=== PATIENT | female | born 2000 | race Caucasian/White ===

== ENCOUNTER 2019-02-23 15:50 | Inpatient (IN) ==
[2019-02-23] MEDS ORDERED: ONDANSETRON INJ 2 MG/ML 2 ML VIAL IV STA (16:09)
[2019-02-23] MEDS ORDERED: SODIUM CHLORIDE 0.9% 1000ML 1,000 ML IV SCH (16:15)
[2019-02-23 16:28] LABS: Basophils # (auto) 0.02 K/uL (0-0.2); Basophils % (auto) 0.2 %; Eosinophils # (auto) 0.02 K/uL (0-0.5); Eosinophils % (auto) 0.2 %; Hemoglobin 15.6 g/dL (12.0-16.0); Immature Granulocytes # (auto) 0.03 K/uL (0.00-0.02); Immature Granulocytes % (auto) 0.4 %; Lymphocytes % (auto) 23.3 %; Mean Corpuscular Hgb Conc 36.3 g/dL (32-36); Mean Corpuscular Volume 90.9 fL (80-100); Mean Platelet Volume 9.8 fL (7.4-10.4); Monocytes # (auto) 0.96 K/uL (0.11-0.59); Monocytes % (auto) 11.8 %; Neutrophils # (auto) 5.21 K/uL (1.4-6.5); Neutrophils % (auto) 64.1 %; Platelet Count 263 K/uL (130-400); RDW Standard Deviation 46.7 fL (36.4-46.3); Red Blood Count 4.73 M/uL (4.2-5.4); White Blood Count 8.14 K/uL (4.8-10.8)
[2019-02-23] MEDS ORDERED: ACETYLCYSTEINE IV ONE (16:30)
[2019-02-23] MEDS ORDERED: DEXTROSE 5% IV ONE (16:30)
[2019-02-23 16:31] LABS: Appearance Urine Clear (Clear); Bacteria Urine Automated Negative (Negative); Bilirubin Urine Negative (Negative); Blood Urine Negative (Negative); Color Urine Yellow; Epithelial Cell Urine Auto >30 /lpf (0-5); Glucose Urine UA Negative (Negative); Ketones Urine Negative (Negative); Leukocyte Esterase Urine Trace (Negative); Nitrite Urine Negative (Negative); Protein Urine Negative (Negative); RBC Urine Automated 0-4 /hpf (0-4); Specific Gravity Urine 1.012 (1.000-1.030); Urobilinogen Urine Negative (Negative); pH Urine 7.5 (4.5-7.5)
[2019-02-23 16:40] LABS: Prothrombin Time 9.8 Seconds (9.0-12.0)
[2019-02-23 16:44] LABS: Pregnancy Test, Serum Negative (Negative)
[2019-02-23 16:45] LABS: Alanine Aminotransferase 18 U/L (12-78); Albumin Level 3.7 gm/dl (3.4-5.0); Aspartate Aminotransferase 20 U/L (15-37); BUN Creatinine Ratio 9.9 (10-20); Blood Urea Nitrogen 8 mg/dl (7-18); Calcium 9.4 mg/dl (8.5-10.1); Carbon Dioxide 24 mmol/L (21-32); Chloride 107 mmol/L (98-107); Creatinine Clr Calc Pharmacy 79.4 ml/min; Est GFR (Non-African American) 105.3; Glucose 102 mg/dl (70-99); Potassium 3.7 mmol/L (3.5-5.1); Sodium 140 mmol/L (136-145)
[2019-02-23 16:49] LABS: Albumin Globulin Ratio 0.9 (0.9-2); Alkaline Phosphatase 79 U/L (45-117); Bilirubin,Total 0.8 mg/dl (0.2-1); Creatine Kinase 88 U/L (26-192); Globulin 4.2 gm/dl (2.5-4.0); Total Protein 7.9 gm/dl (6.4-8.2); Troponin I < 0.015 ng/ml (0-0.045)
[2019-02-23 16:57] LABS: Amphetamines+Metham, Urine Neg (Neg); Barbiturates, Urine Neg (Neg); Benzodiazepine, Urine Neg (Neg); Cocaine, Urine Neg (Neg); MDMA (Ecstacy), Urine Neg (Neg); Methadone, Urine Neg (Neg); Opiate, Urine Neg (Neg); Phencyclidine, Urine Neg (Neg)
[2019-02-23 17:10] LABS: Acetaminophen 279 ug/ml (10-30); Salicylate < 1.7 mg/dl (2.8-20)
[2019-02-23] MEDS ORDERED: DEXTROSE 5% IV SCH (17:30)
[2019-02-23] MEDS ORDERED: ACETYLCYSTEINE IV SCH (17:30)
--- NOTE | 2019-02-23 17:32 | Emergency Department Note ---
Entered by Bharath Du acting as a scribe for History of Present Illness General Chief complaint: Mental Health Evaluation Stated complaint: overdose Time Seen by Provider: 02/23/19 15:52 Source: patient History of Present Illness Onset (ago): hour(s) 2 Severity: severe (40 tables of extra strength Tylenol) Quality: + other (Tylenol overdose suicidal attempt) Exacerbated By: + rest (culmination of stress, class, anxiety, and social life troubles) Associated symptoms: + denies other symptoms (abdominal pain, vomiting) and + other (lightheadedness) The patient is a 18 y/o female who presents to the ED after a suicide attempt that occurred 2 hours ago. Nursing staff states the patient took 40, extra strength Tylenol about 2 hours ago. They report it was a suicide attempt. Nursing staff notes there are 19/100 pills remaining in the bottle, and they did not know how many were in the bottle to start. Police states the patient has been depressed for about two weeks and complains of constant pain. They report they did not see other pills around the patient's home. Police note the patient sent a text to a friend stating she had 35 pills. The patient states "I was hoping I would go to sleep and not wake up". She reports she has had a culmination of stress, class, anxiety, and social life troubles. 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 She states she was at a friend's house today, went to class, and came home. The patient reports she then decided to take 2, extra strength Tylenol, and she notes she continued to take them one after another for about 30-40 minutes. She notes she took her last pill about 1-2 hours ago and believes she took around 40 pills. The patient states she also took six, 10mg tablets of melatonin. She reports she has started to feel lightheaded, but she denies vomiting. The patient notes she texted her friend and told her that she thinks she needs to go to the hospital. She states she takes control, uses alcohol 3-4 times a week, and used marijuana almost daily. The patient reports she does not know if she wants her parents informed, and she still feels suicidal. She denies a history of suicidal attempts, calling anyone other than her friend, tobacco use, and abdominal pain. Home Medications Home Medications Medication Instructions Recorded Confirmed Type norethindrone-e.estradiol-iron 1 tab PO DAILY 02/23/19 02/23/19 History [ ()] Allergies Allergy/AdvReac Type Severity Reaction Status Date / Time No Known Allergies Allergy Unverified 02/23/19 16:37 Past Med/Surg History Medical History No pertinent past medical history Surgical History No pertinent past surgical history Family History Other No pertinent family history Social History Preferred Language: Liberian Communication Ability: [employer] Manager Required: No Beliefs That Will Affect Care: None Current Living Situation: Other Current Living Situation Comment: apartment with roommates Feels Safe at Home: Yes Smoking Status: Former smoker Hx Alcohol Use: Yes Hx Substance Use: No Review of Systems See HPI for pertinent positives & negatives. and A total of 10 systems reviewed and were otherwise negative Physical Exam Vital Signs Vital Signs - 24 hr 02/23/19 15:59 02/23/19 16:30 02/23/19 16:33 Temperature 36.4 C L Temperature Source Oral Sepsis Recent Fever Within 48 Hours No Sepsis Action Taken by Nursing No Action Required Pulse Rate 82 74 Pulse Rate from SpO2 Sensor 75 Pulse Rhythm Regular Pulse Strength Normal Respiratory Rate 18 15 Respiratory Effort / Characteristics Non-Labored Respiratory Depth Normal Respiratory Pattern Regular Blood Pressure 126/81 119/73 Blood Pressure Mean 96 88 Blood Pressure Position Lying Pulse Oximetry 96 97 99 Oxygen Delivery Method Room Air Room Air Room Air 02/23/19 17:03 02/23/19 17:30 02/23/19 18:00 Temperature Temperature Source Sepsis Recent Fever Within 48 Hours Sepsis Action Taken by Nursing Pulse Rate 86 74 79 Pulse Rate from SpO2 Sensor 76 73 Pulse Rhythm Pulse Strength Respiratory Rate 17 17 16 Respiratory Effort / Characteristics Respiratory Depth Respiratory Pattern Blood Pressure 119/80 110/69 117/71 Blood Pressure Mean 93 82 86 Blood Pressure Position Pulse Oximetry 97 98 98 Oxygen Delivery Method 02/23/19 18:30 02/23/19 19:00 02/23/19 19:30 Temperature Temperature Source Sepsis Recent Fever Within 48 Hours Sepsis Action Taken by Nursing Pulse Rate 80 73 75 Pulse Rate from SpO2 Sensor 84 71 77 Pulse Rhythm Pulse Strength Respiratory Rate 21 27 H 15 Respiratory Effort / Characteristics Respiratory Depth Respiratory Pattern Blood Pressure 120/74 120/80 111/77 Blood Pressure Mean 89 93 88 Blood Pressure Position Pulse Oximetry 97 97 97 Oxygen Delivery Method GENERAL: The patient is awake and alert. She is somewhat anxious appearing. EYES: The conjunctivae are clear. The pupils are round and reactive. EARS, NOSE, MOUTH AND THROAT: The nose is without any evidence of any deformity. Mucous membranes are moist tongue is midline NECK: The neck is nontender and supple. RESPIRATORY: Normal respiratory effort is noted there is no evidence of wheezing rhonchi or rales CARDIOVASCULAR: Regular rate and rhythm noted there no murmurs rubs or gallops normal S1 normal S2 GASTROINTESTINAL: The abdomen is soft. Bowel sounds are present in all quadrants. Abdomen is nontender MUSCULOSKELETAL/EXTREMITIES: There is no evidence of gross deformity full range of motion is noted in the hips and shoulders SKIN: There is no obvious evidence of any rash. There are no petechiae, pallor or cyanosis noted. NEUROLOGIC: Patient is awake and oriented to person place and situation. Patellar tendon reflexes are 2+ bilaterally. PSYCH: Patient is awake but mildly anxious appearing. Her affect is flat. She makes very poor eye contact. Patient continues to admit to suicidal ideation but is very vague about the cause of her suicidal ideation at this time. Course 1601: Past medical records reviewed. The patient was evaluated in room A07. A complete history and physical exam was performed. The charge nurse consulted [facility] [facility]. 1721: I reviewed the patient's case with Dr. Le, [facility] Hospitalist. He will evaluate the patient for further management. Administered Medications Discontinued Medications Sodium Chloride (Nss 1000ml) 1,000 mls @ 999 mls/hr IV .Q1H1M ASA Stop: 02/23/19 17:15 Last Infusion: 02/23/19 17:37 Dose: 0 mls/hr Documented by: [id number] Admin: 02/23/19 16:36 Dose: 999 mls/hr Documented by: [id number] Acetylcysteine 6,750 mg/ (Dextrose) 233.75 mls @ 200 mls/hr IV NOW ONE; Protocol Stop: 02/23/19 17:40 Last Infusion: 02/23/19 17:54 Dose: 0 mls/hr Documented by: [id number] Admin: 02/23/19 16:43 Dose: 200 mls/hr Documented by: [id number] Acetylcysteine 2,250 mg/ (Dextrose) 511.25 mls @ 125 mls/hr IV TODAY@1730 ASA; Protocol Stop: 02/23/19 21:36 Last Infusion: 02/23/19 23:11 Dose: 0 mls/hr Documented by: [id number] Admin: 02/23/19 17:55 Dose: 125 mls/hr Documented by: [id number] Acetylcysteine 4,500 mg/ (Dextrose) 1,022.5 mls @ 62.5 mls/hr IV TODAY@2130 ASA; Protocol Stop: 02/24/19 13:52 Last Infusion: 02/24/19 14:45 Dose: 0 mls/hr Documented by: [id number] Admin: 02/23/19 22:23 Dose: 62.5 mls/hr Documented by: [id number] Ondansetron HCl (Zofran) 4 mg IV NOW STA Stop: 02/23/19 16:10 Last Admin: 02/23/19 16:36 Dose: 4 mg Documented by: [id number] Potassium Chloride (Klor-Con M20) 20 meq PO NOW STA Stop: 02/24/19 11:54 Last Admin: 02/24/19 12:39 Dose: 20 meq Documented by: [id number] Medical Decision Making Differential Diagnosis Differential diagnoses considered include mood disorder, infection, h ypoglycemia, electrolyte abnormalities, cardiac sources, intracerebral event, toxicologic, neurologic, as well as others. Medical Records Attestation: I reviewed the patient's medical records. Home Medications Current Medication List: was personally reviewed by me Laboratory Data Attestation: I reviewed the patient's lab results. Result diagrams: 02/25/19 05:17 02/25/19 05:17 Lab Results 02/23/19 02/23/19 02/23/19 Range/Units 16:06 16:06 16:18 WBC 8.14 (4.8-10.8) K/uL RBC 4.73 (4.2-5.4) M/uL Hgb 15.6 (12.0-16.0) g/dL Hct 43.0 (37-47) % MCV 90.9 (80-100) fL MCH 33.0 (25-34) pg MCHC 36.3 H (32-36) g/dL RDW Std Deviation 46.7 H (36.4-46.3) fL RDW Coeff of Joseline 14.0 (11.5-14.5) % Plt Count 263 (130-400) K/uL MPV 9.8 (7.4-10.4) fL Immature Gran % (Auto) 0.4 % Neut % (Auto) 64.1 % Lymph % (Auto) 23.3 % [place] % (Auto) 11.8 % Eos % (Auto) 0.2 % Baso % (Auto) 0.2 % Immature Gran # (Auto) 0.03 H (0.00-0.02) K/uL Neut # (Auto) 5.21 (1.4-6.5) K/uL Lymph # (Auto) 1.90 (1.2-3.4) K/uL [place] # (Auto) 0.96 H (0.11-0.59) K/uL Eos # (Auto) 0.02 (0-0.5) K/uL Baso # (Auto) 0.02 (0-0.2) K/uL PT (9.0-12.0) Seconds INR (0.9-1.1) Sodium (136-145) mmol/L Potassium (3.5-5.1) mmol/L Chloride (98-107) mmol/L Carbon Dioxide (21-32) mmol/L Anion Gap (3-11) BUN (7-18) mg/dl Creatinine (0.6-1.2) mg/dl Est Cr Clr Drug Dosing ml/min Est GFR ( Amer) Est GFR (Non-Af Amer) BUN/Creatinine Ratio (10-20) Glucose (70-99) mg/dl Calcium (8.5-10.1) mg/dl Magnesium (1.8-2.4) mg/dl Total Bilirubin (0.2-1) mg/dl AST (15-37) U/L ALT (12-78) U/L Alkaline Phosphatase (45-117) U/L Total Creatine Kinase (26-192) U/L Troponin I (0-0.045) ng/ml Total Protein (6.4-8.2) gm/dl Albumin (3.4-5.0) gm/dl Globulin (2.5-4.0) gm/dl Albumin/Globulin Ratio (0.9-2) HCG, Qual (Negative) Urine Color Yellow Urine Appearance Clear (Clear) Urine pH 7.5 (4.5-7.5) Ur Specific [place] 1.012 (1.000-1.030) Urine Protein Negative (Negative) Urine Glucose (UA) Negative (Negative) Urine Ketones Negative (Negative) Urine Blood Negative (Negative) Urine Nitrite Negative (Negative) Urine Bilirubin Negative (Negative) Urine Urobilinogen Negative (Negative) Ur Leukocyte Esterase Trace H (Negative) Urine WBC (Auto) 1-5 (0-5) /hpf Urine RBC (Auto) 0-4 (0-4) /hpf U Hyaline Cast (Auto) 1-5 (0-5) /lpf U Epithel Cells (Auto) >30 H (0-5) /lpf Urine Bacteria (Auto) Negative (Negative) Salicylates (2.8-20) mg/dl Urine Opiates Screen Neg (Neg) Ur Methadone, Qual Neg (Neg) Acetaminophen (10-30) ug/ml Urine Barbiturates Neg (Neg) Ur Phencyclidine (PCP) Neg (Neg) U Amphetamin/Meth Scrn Neg (Neg) MDMA (Ecstasy) Screen Neg (Neg) U Benzodiazepines Scrn Neg (Neg) Ur Cocaine Metabolite Neg (Neg) U Marijuana (THC) Screen Neg (Neg) Ethyl Alcohol mg/dL (0-3) mg/dl 02/23/19 02/23/19 02/23/19 Range/Units 16:18 16:18 16:18 WBC (4.8-10.8) K/uL RBC (4.2-5.4) M/uL Hgb (12.0-16.0) g/dL Hct (37-47) % MCV (80-100) fL MCH (25-34) pg MCHC (32-36) g/dL RDW Std Deviation (36.4-46.3) fL RDW Coeff of Joseline (11.5-14.5) % Plt Count (130-400) K/uL MPV (7.4-10.4) fL Immature Gran % (Auto) % Neut % (Auto) % Lymph % (Auto) % [place] % (Auto) % Eos % (Auto) % Baso % (Auto) % Immature Gran # (Auto) (0.00-0.02) K/uL Neut # (Auto) (1.4-6.5) K/uL Lymph # (Auto) (1.2-3.4) K/uL [place] # (Auto) (0.11-0.59) K/uL Eos # (Auto) (0-0.5) K/uL Baso # (Auto) (0-0.2) K/uL PT 9.8 (9.0-12.0) Seconds INR 1.0 (0.9-1.1) Sodium 140 (136-145) mmol/L Potassium 3.7 (3.5-5.1) mmol/L Chloride 107 (98-107) mmol/L Carbon Dioxide 24 (21-32) mmol/L Anion Gap 9.0 (3-11) BUN 8 (7-18) mg/dl Creatinine 0.81 (0.6-1.2) mg/dl Est Cr Clr Drug Dosing 79.4 ml/min Est GFR ( Amer) 122.0 Est GFR (Non-Af Amer) 105.3 BUN/Creatinine Ratio 9.9 L (10-20) Glucose 102 H (70-99) mg/dl Calcium 9.4 (8.5-10.1) mg/dl Magnesium 2.0 (1.8-2.4) mg/dl Total Bilirubin 0.8 (0.2-1) mg/dl AST 20 (15-37) U/L ALT 18 (12-78) U/L Alkaline Phosphatase 79 (45-117) U/L Total Creatine Kinase 88 (26-192) U/L Troponin I < 0.015 (0-0.045) ng/ml Total Protein 7.9 (6.4-8.2) gm/dl Albumin 3.7 (3.4-5.0) gm/dl Globulin 4.2 H (2.5-4.0) gm/dl Albumin/Globulin Ratio 0.9 (0.9-2) HCG, Qual (Negative) Urine Color Urine Appearance (Clear) Urine pH (4.5-7.5) Ur Specific [place] (1.000-1.030) Urine Protein (Negative) Urine Glucose (UA) (Negative) Urine Ketones (Negative) Urine Blood (Negative) Urine Nitrite (Negative) Urine Bilirubin (Negative) Urine Urobilinogen (Negative) Ur Leukocyte Esterase (Negative) Urine WBC (Auto) (0-5) /hpf Urine RBC (Auto) (0-4) /hpf U Hyaline Cast (Auto) (0-5) /lpf U Epithel Cells (Auto) (0-5) /lpf Urine Bacteria (Auto) (Negative) Salicylates < 1.7 L (2.8-20) mg/dl Urine Opiates Screen (Neg) Ur Methadone, Qual (Neg) Acetaminophen 279 H* (10-30) ug/ml Urine Barbiturates (Neg) Ur Phencyclidine (PCP) (Neg) U Amphetamin/Meth Scrn (Neg) MDMA (Ecstasy) Screen (Neg) U Benzodiazepines Scrn (Neg) Ur Cocaine Metabolite (Neg) U Marijuana (THC) Screen (Neg) Ethyl Alcohol mg/dL (0-3) mg/dl 02/23/19 02/23/19 Range/Units 16:18 16:18 WBC (4.8-10.8) K/uL RBC (4.2-5.4) M/uL Hgb (12.0-16.0) g/dL Hct (37-47) % MCV (80-100) fL MCH (25-34) pg MCHC (32-36) g/dL RDW Std Deviation (36.4-46.3) fL RDW Coeff of Joseline (11.5-14.5) % Plt Count (130-400) K/uL MPV (7.4-10.4) fL Immature Gran % (Auto) % Neut % (Auto) % Lymph % (Auto) % [place] % (Auto) % Eos % (Auto) % Baso % (Auto) % Immature Gran # (Auto) (0.00-0.02) K/uL Neut # (Auto) (1.4-6.5) K/uL Lymph # (Auto) (1.2-3.4) K/uL [place] # (Auto) (0.11-0.59) K/uL Eos # (Auto) (0-0.5) K/uL Baso # (Auto) (0-0.2) K/uL PT (9.0-12.0) Seconds INR (0.9-1.1) Sodium (136-145) mmol/L Potassium (3.5-5.1) mmol/L Chloride (98-107) mmol/L Carbon Dioxide (21-32) mmol/L Anion Gap (3-11) BUN (7-18) mg/dl Creatinine (0.6-1.2) mg/dl Est Cr Clr Drug Dosing ml/min Est GFR ( Amer) Est GFR (Non-Af Amer) BUN/Creatinine Ratio (10-20) Glucose (70-99) mg/dl Calcium (8.5-10.1) mg/dl Magnesium (1.8-2.4) mg/dl Total Bilirubin (0.2-1) mg/dl AST (15-37) U/L ALT (12-78) U/L Alkaline Phosphatase (45-117) U/L Total Creatine Kinase (26-192) U/L Troponin I (0-0.045) ng/ml Total Protein (6.4-8.2) gm/dl Albumin (3.4-5.0) gm/dl Globulin (2.5-4.0) gm/dl Albumin/Globulin Ratio (0.9-2) HCG, Qual Negative (Negative) Urine Color Urine Appearance (Clear) Urine pH (4.5-7.5) Ur Specific [place] (1.000-1.030) Urine Protein (Negative) Urine Glucose (UA) (Negative) Urine Ketones (Negative) Urine Blood (Negative) Urine Nitrite (Negative) Urine Bilirubin (Negative) Urine Urobilinogen (Negative) Ur Leukocyte Esterase (Negative) Urine WBC (Auto) (0-5) /hpf Urine RBC (Auto) (0-4) /hpf U Hyaline Cast (Auto) (0-5) /lpf U Epithel Cells (Auto) (0-5) /lpf Urine Bacteria (Auto) (Negative) Salicylates (2.8-20) mg/dl Urine Opiates Screen (Neg) Ur Methadone, Qual (Neg) Acetaminophen (10-30) ug/ml Urine Barbiturates (Neg) Ur Phencyclidine (PCP) (Neg) U Amphetamin/Meth Scrn (Neg) MDMA (Ecstasy) Screen (Neg) U Benzodiazepines Scrn (Neg) Ur Cocaine Metabolite (Neg) U Marijuana (THC) Screen (Neg) Ethyl Alcohol mg/dL < 3.0 (0-3) mg/dl ECG Data Attestation: I personally reviewed and interpreted this ECG as follows: Indication: toxicologic Rate (beats per minute): 66 Rhythm: normal sinus Findings: no PAC, no PVC, no ST depression, no ST elevation, no acute ischemic change and no ectopy Blood Pressure Blood Pressure Findings: Normal blood pressure Blood Pressure Disposition: did not require urgent referral MDM Narrative The patient is a 18-year-old female who presented to the emergency department with police. The patient suffered a Tylenol ingestion with suicidal ideation and suicidal gesture. Patient took an overdose of Tylenol this afternoon. It appears to the best of our abilities we have narrowed down the timeline from somewhere between 1 and 2 PM today the patient started taking Tylenol over the course of about 45 to 60 minutes. He took anywhere from 35-45, 500 mg Tylenol tablets. She also took melatonin tablets [id number] with him. The patient was very depressed. She was very vague about her reasoning for taking the medication. The patient was started on N-acetylcysteine immediately. I discussed the patient's laboratory results with her. She was unable to be medically cleared given the extent of the overdose of Tylenol. For this reason I discussed her case with the on-call [facility] hospitalist. They have agreed to evaluate the patient in the emergency department for further management disposition. The patient was reevaluated multiple times. I discussed her case with the emergency department mental health nurse case manager. She was evaluated by the mental health nurse case manager. The case was discussed with the poison center. Impression & Plan Acetaminophen overdose, Suicide gesture, Suicidal ideation Critical Care Time Critical Care Time: Yes Total Critical Care Time: 45 I have personally spent greater than 45 minutes of critical care time in the direct management of this patient. This includes bedside care, interpretation of diagnostic studies, and testing, discussion with consultants, patient, and family members, and other required patient management activities. This 45 minutes is in excess of all separately billable procedures. Discharge Plan Visit Data *Final* Discharge Date/Time: 02/23/19 21:06 Chief Complaint: Mental Health Evaluation Stated Complaint: overdose ED Provider: Aung Hu Discharge Problem: Acetaminophen overdose, Suicide gesture, Suicidal ideation Patient Disposition: Admitted As Inpatient Discharge Instructions Interventions: ED Discharge Assessment Last Done: 02/23/19 21:06 Discharge Problem: Acetaminophen overdose Qualifiers: Encounter type: initial encounter Injury intent: intentional self-harm Qualified Code(s): T39.1X2A - Poisoning by 4-Aminophenol derivatives, intentional self-harm, initial encounter Suicide gesture Qualifiers: Encounter type: initial encounter Qualified Code(s): X83.8XXA - Intentional self-harm by other specified means, initial encounter The scribe's documentation has been prepared under my direction and personally reviewed by me in its entirety. I confirm that the note above accurately reflects all work, treatment, procedures, and medical decision making performed by me.
--- NOTE | 2019-02-23 20:48 | History & Physical Report ---
Date of Service February 23, 2019 Assessment & Plan (1) Acetaminophen overdose: Intentional suicide attempt due to social emotional stresses As per patient this is the first suicide attempt in her life No previous psychiatric history, her mother confirmed Present control has been coming back and forth the recommended Acetadote which is 3 bags 1/1 hour, the second over 4 hours, 3rd bag over 16 hours. They recommended that 4 hours prior to the 16 hours back to finish we should obtain liver enzymes and INR. 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 In my interview with her and her mother was at bedside and she admitted that she was trying to hurt herself, and she admitted that she understands what she did was wrong. Primary Care Provider: [facility] Allergies Allergy/AdvReac Type Severity Reaction Status Date / Time No Known Allergies Allergy Unverified 02/23/19 16:37 Home Medications Home Medications Medication Instructions Recorded Confirmed Type norethindrone-e.estradiol-iron 1 tab PO DAILY 02/23/19 02/23/19 History [ ()] Past Med/Surg History Medical History No pertinent past medical history Surgical History No pertinent past surgical history Family History Other No pertinent family history Social History Feels Safe at Home: Yes Smoking Status: Never smoker Hx Alcohol Use: Yes Hx Substance Use: Yes substance use type: marijuana Review of Systems Review of Systems: Review of system Constitutional: No fever / no chills / no sweats / no weakness / no fatigue Eyes: no blurring of vision / no eye pain / no discharge / no redness ENT: no hearing loss / no epistaxis /no swallowing problems Respiratory: no cough / no wheezing / no SOB / no hemoptysis Cardiovascular: no Chest pain / no lower extremity edema / no palpitation Abdomen: no pain / no nausea / no vomiting / no constipation Musculoskeletal: no joint pain / no muscle pain / no joint swelling Genitourinary: no dysuria / no incontinence / no urinary retention Neurologic: no focal weakness / no numbness/tingling / no ataxia Psychiatric: Positive for depression and Endocrine: no excessive thirst / no excessive urination Hematologic: no abnormal bleeding / no bruising / no LN swelling Skin: No rash / no pallor Physical Exam Physical Exam: Physical examination General patient appears to be comfortable, not in acute distress HEENT: Atraumatic , normocephalic /no jaundice /no pallor /anicteric /no dry mucous membrane /normal external ear inspection Neck: Supple /no swelling /central trach Heart: S1/S2 normal/regular rate and rhythm/no gallop /no rub /no murmur Lungs: Clear to auscultation bilaterally/normal chest with expansion/no rhonchi/no rales/no wheezing/no use of accessory muscles of respiration Abdomen: Soft/nontender/no guarding/no rebound/no organomegaly/no pulsatile mass Musculoskeletal: No swelling/no edema/no tenderness/normal range of motion Neuro exam: Awake alert oriented 3/cranial nerves II through XII appear to be intact/sensation intact/moves all extremities/no abnormal movements Psychiatric evaluation: Very depressed mood and flat affect Skin: No rash on exposed skin area/no erythema Extremity: Normal pulse/no pitting edema/no clubbing or cyanosis Endocrine/lymphatic: No obvious lymphadenopathy /no lymphedema Results & Data Vital Signs (Past 12 Hours) Vital Signs Temp Pulse Resp BP Pulse Ox 02/23/19 19:00 73 27 H 120/80 97 02/23/19 18:30 80 21 120/74 97 02/23/19 18:00 79 16 117/71 98 02/23/19 17:30 74 17 110/69 98 02/23/19 17:03 86 17 119/80 97 02/23/19 16:33 74 15 119/73 99 02/23/19 16:30 97 02/23/19 15:59 36.4 C L 82 18 126/81 96 Code Status & VTE Plan VTE Prophylaxis Plan VTE Prophylaxis will be ordered: No PG Care Time/CCT Total # of Minutes Spent Total Time Spent with Patient: 35 minutes total time spent is greater than 50% in coordination of care (as documented) at patient's floor/unit and/or counseling patient/family discussion of care with nursing staff (1) Acetaminophen overdose Encounter type: initial encounter Injury intent: intentional self-harm Qualified Code(s): T39.1X2A - Poisoning by 4-Aminophenol derivatives, intentional self-harm, initial encounter
[2019-02-23 23:58] LABS: INR 1.1 (0.9-1.1); Partial Thromboplastin Time 28.1 Seconds (21.0-31.0)
[2019-02-24 00:01] LABS: Albumin Level 3.1 gm/dl (3.4-5.0); Bilirubin Direct 0.2 mg/dl (0-0.2); Bilirubin,Total 0.5 mg/dl (0.2-1)
[2019-02-24 09:39] LABS: Hematocrit (blood only) 42.8 % (37-47); Mean Corpuscular Hemoglobin 31.9 pg (25-34); Mean Corpuscular Volume 91.1 fL (80-100); Mean Platelet Volume 9.9 fL (7.4-10.4); Platelet Count 279 K/uL (130-400); RDW Coefficient of Variation 14.1 % (11.5-14.5); RDW Standard Deviation 47.3 fL (36.4-46.3)
[2019-02-24 09:48] LABS: INR 1.1 (0.9-1.1); Prothrombin Time 11.1 Seconds (9.0-12.0)
[2019-02-24 10:14] LABS: Albumin Level 3.2 gm/dl (3.4-5.0); BUN Creatinine Ratio 4.6 (10-20); Bilirubin Direct 0.2 mg/dl (0-0.2); Creatinine Clr Calc Pharmacy 96.7 ml/min; Est GFR (African American) 136.1; Est GFR (Non-African American) 117.4; Potassium 3.3 mmol/L (3.5-5.1)
[2019-02-24 10:17] LABS: Albumin Globulin Ratio 0.8 (0.9-2); Bilirubin,Total 0.7 mg/dl (0.2-1); Globulin 3.8 gm/dl (2.5-4.0)
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
[2019-02-24] MEDS ORDERED: POTASSIUM CHLORIDE 20 MEQ TABCR PO STA (11:53)
--- NOTE | 2019-02-24 13:57 | Hospitalist Progress Note ---
Date of Service February 24, 2019 Assessment & Plan (1) Acetaminophen overdose: Intentional suicide attempt due to social emotional stresses As per patient this is the first suicide attempt in her life No previous psychiatric history, her mother confirmed Completed acetylcysteine. No hepatitis to warrant further dosing. Rpt LFTs in AM and can be medically discharged at that time. (2) Suicide attempt by acetaminophen overdose: appreciate psychiatry management Subjective No acute events overnight. Less nausea than yesterday. Eating and drinking well. Review of Systems Review of Systems: All systems reviewed & are unremarkable except as noted in HPI & below Physical Exam Constitutional: WD/WN, vitals as above Eyes: PERRL, conjunctivae normal, anicteric sclerae ENMT: external ear and nose normal, oropharynx normal Neck: normal visual inspection and trachea midline Respiratory: normal respiratory effort, lungs clear to auscultation Cardiovascular: RRR, no murmur, no edema Gastrointestinal (Abdomen): Inspection/Auscultation: abdomen normal to inspection and + hyperactive bowel sounds Percussion/Palpation: + abdomen tender (mild RUQ tenderness to deep palpation) and abdomen soft Musculoskeletal: no cyanosis or clubbing, extremities motor strength 5/5 Skin: no rashes, warm and dry Neurologic: CN's II-XI intact bilaterally and awake; no focal motor deficits Psychiatric: Orientation: alert and oriented x 3 Apperance: appropriately dressed, appropriately groomed and appeared stated age Eye Contact: good eye contact Results & Data Vital Signs (Past 12 Hours) Vital Signs Temp Pulse Pulse Pulse Resp BP BP 02/24/19 11:52 99.1 F 83 20 127/83 02/24/19 09:09 98.8 F 71 20 136/82 02/24/19 07:53 63 02/24/19 03:05 98.2 F 76 19 113/71 Pulse Ox 02/24/19 11:52 96 02/24/19 09:09 97 02/24/19 07:53 02/24/19 03:05 98 PG Care Time/CCT Total # of Minutes Spent Total Time Spent with Patient: Total time spent is greater than 50% in coordination of care (as documented) at patient's floor/unit and/or counseling patient: (1) Acetaminophen overdose Encounter type: initial encounter Injury intent: intentional self-harm Qualified Code(s): T39.1X2A - Poisoning by 4-Aminophenol derivatives, intentional self-harm, initial encounter
[2019-02-25 05:33] LABS: Hematocrit (blood only) 41.1 % (37-47); Hemoglobin 14.7 g/dL (12.0-16.0); Mean Corpuscular Hemoglobin 32.9 pg (25-34); Mean Corpuscular Hgb Conc 35.8 g/dL (32-36); Mean Corpuscular Volume 91.9 fL (80-100); Mean Platelet Volume 9.7 fL (7.4-10.4); Platelet Count 261 K/uL (130-400); RDW Coefficient of Variation 14.4 % (11.5-14.5); RDW Standard Deviation 48.6 fL (36.4-46.3); Red Blood Count 4.47 M/uL (4.2-5.4); White Blood Count 6.35 K/uL (4.8-10.8)
[2019-02-25 05:44] LABS: Prothrombin Time 10.7 Seconds (9.0-12.0)
[2019-02-25 06:03] LABS: Albumin Level 3.3 gm/dl (3.4-5.0); BUN Creatinine Ratio 7.5 (10-20); Calcium 8.8 mg/dl (8.5-10.1); Creatinine Clr Calc Pharmacy 99.4 ml/min; Est GFR (African American) 140.7; Est GFR (Non-African American) 121.4; Magnesium 1.9 mg/dl (1.8-2.4); Potassium 3.9 mmol/L (3.5-5.1)
[2019-02-25 06:06] LABS: Albumin Globulin Ratio 0.9 (0.9-2); Bilirubin,Total 0.6 mg/dl (0.2-1); Globulin 3.6 gm/dl (2.5-4.0); Total Protein 6.9 gm/dl (6.4-8.2)
== END 2019-02-25 14:00 | DRG 918 ==
LOC: ED 15:50 → 2S 19:43 → SUATTDRO 19:43 → 2S 21:06

== ENCOUNTER 2019-02-25 12:48 | Inpatient (IN) ==
[2019-02-25] MEDS ORDERED: MAGNESIUM HYDROXIDE SUSP 30 ML UDC PO PRN (14:30)
[2019-02-25] MEDS ORDERED: ACETAMINOPHEN 325 MG TAB PO PRN (14:30)
[2019-02-25] MEDS ORDERED: SODIUM CHLORIDE 0.65% NA SOLN 45 ML (OCEAN) PRN (14:30)
[2019-02-25] MEDS ORDERED: ALUMINUM/MAGNESIUM SUSP 30 ML UDC PO PRN (14:30)
[2019-02-25] MEDS ORDERED: BISMUTH SUBSALICYLATE PER ML OMNICELL CHARGE PO PRN (14:30)
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
[2019-02-26] MEDS: ESCITALOPRAM OXALATE 10 MG TAB PO SCH (11:53)
[2019-02-26] MEDS ORDERED: CALCIUM CARBONATE 500 MG CHEWABLE TAB PO PRN (15:03)
[2019-02-27] MEDS: ESCITALOPRAM OXALATE 10 MG TAB PO SCH (08:51)
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
[2019-02-28] MEDS: ESCITALOPRAM OXALATE 10 MG TAB PO SCH (08:38)
--- NOTE | 2019-02-28 10:09 | Discharge Summary ---
Date of Service February 28, 2019 History of Present Illness The patient is a 18-year-old woman who was transferred to the inpatient psychiatric service on 02/25/2019 following stabilization on the medical service where she had been admitted on 02/23/2019 following a deliberate overdose of approximately 40 Tylenol capsules. Ms. 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 Although she reports no previous contact with the psychiatric community, the patient does indicate that she has been suffering from symptoms of depression for approximately the past 3 years. Reported symptoms of depression have included depressed mood, crying spells, intermittent anhedonia, apathy, anergia, and psychosocial withdrawal. The patient reports that the symptoms have waxed and waned over the past 3 years, but began to worsen during the most recent calendar year and, in particular, during the past 2 months. She notes that last spring she ended what she described as a "very close friendship" with a female friend because she felt that the friend was being depreciating and unkind. Around the time that she ended the friendship with her female friend she became romantically involved with a young man, and notes that she came to rely emotionally on her new boyfriend, in part as a substitute for the emotional support that she had, at times, enjoyed from her friendship with the female peer. Towards the end of the summer the patient's boyfriend began to express ambivalence about maintaining the romantic relationship with the patient, and, according the patient, would fluctuate between telling her that he wanted to end the relationship one day, and the next day he would tell her that he "did not mean it" as wanted to pursue the relationship. The patient notes that this pattern persisted and she eventually experienced it as being emotionally abusive. Eventually, the boyfriend did officially breakup with her, and this was very distressing to the patient because she had come to rely on him as a primary psychosocial support. 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 For example, the former social sciences research scientist at her sorority may be engaging in sabotaging behaviors, and she finds her desire to "please everyone" challenged by the fact that she finds herself and a set of roles which do not allow her to please everyone. The patient notes that on the day of her overdose she was feeling somewhat overwhelmed by the above circumstances and by several "bad days" during which she had been feeling particularly depressed. She had contemplated an overdose intermittently for the week immediately prior to the actual overdose on Tylenol, and on the day in question, almost without thinking, sat down and began taking the acetaminophen tablets with the primary goal of "ending all of the [emotionally] pain." The patient notes that she "sort of came to," realized what she had just done and taking the overdose, contacted a friend, reported what she had done, and arrangements were made for her to be brought to the emergency room for evaluation. Although not identified as a problem by the patient, she acknowledges that she drinks "4 or 5 beers" per drinking episode, 3 nights a week with her college friends. ( night, Friday night, and Friday nigh t, which is a drinking pattern that she describes as "typical" for her peer group.) She also acknowledges smoking marijuana with friends, 3 or 4 times a week, and notes that for her the benefit of marijuana is that she feels that it assists in reducing her anxiety. Physical Exam Psychiatric at discharge assessment Orientation: alert, oriented x 3 and cooperative Apperance: appropriately dressed and appropriately groomed Eye Contact: good eye contact Motor Behavior: steady gait and station Speech: normal rate/rhythm/volume of speech Affect: euthymic affect good Thought Process: goal directed thought process, linear/logical thought process and clear/coherent thought process Thought Content: reality based without delusions; not paranoid, no hopelessness, no worthlessness and no guilt Suicidal Thoughts: denies suicidal thoughts Homicidal Thoughts: denies homicidal thoughts Hallucinations: no auditory hallucinations Cognition: recent memory grossly intact, remote memory grossly intact, attention grossly intact and language grossly intact Estimated Intelligence: + above average estimated intelligence Insight: good insight Judgement: good judgement Vital Signs (Past 24 Hours) Last Vital Signs Temp 36.6 C 02/28/19 06:39 Pulse 97 H 02/28/19 06:42 Resp 16 02/28/19 06:39 BP 109/72 02/28/19 06:42 Principal Diagnosis Major Depressive Disorder Psychiatric Data Day of Discharge Assessment Pt reports improved mood that is now good, she is feeling less depressed and less anxious. She is without SI. She feels supported by her parents. She reports comfort with taking Lexapro and aims to obtain a psychiatric provider to manage that medication She is aiming to obtain psychotherapy appts at [facility] with referral sent on Friday afternoon. She has some queasiness at mild level that she tends to have when eats greasy or fried foods . She denied other physical symptoms or concerns. She is seeking discharge and is considered a safe and appropriate for discharge at this time. She aims to contact providers for medication management in case [facility] unable to provide that service as well. She is aiming to pull back on her drinking which increased as she was more depressed and stressed. She is dropping one class and is pulling out of one s ocial chair position and obtaining more support for the other one Transition of Care Transition Of Care Record: was reviewed with the patient Advance Directives Advance Directives Information Provided: No Advance Directives: No Mental Health Advance Directive: No Advance Directives on File: No Living Will: No Power of Drive Thru Order Taker: No Advance Directives Reason:: Declines as Mental Health Visit. Risk Factors Assessment Male: No : Yes Do You Have Access To A Gun?: No (.) Health Problems: No Mental Health Diagnoses: Yes Substance Use Disorders: No Previous Attempt: No (The patient reports that she had never engaged in any form of intentional self-injurious behaviors prior to the deliberate overdose of Tylenol taken on 02/23/2019.) Family History of Suicide: No Previous Psychiatric Hospitalization: No Hopelessness: No Smoker: No Protective Factors Assessment Anglican Beliefs: No : No Responsible for Young Children: No Employed: No Stable Relationships: Yes Supportive Family: Yes Good Rapport with Provider: Yes Absence of Any Risk Factors Above: No Tobacco Cessation at Discharge Tobacco Cessation Medication Prescribed at Discharge: Not Applicable/Non-Smoker Total Time Total Time Spent: Greater Than 30 Minutes Total Time Includes: Examination of the patient, Discharge Planning and Medication Reconciliation Hospital Course (1) Suicide attempt by acetaminophen overdose: 02/26 -The patient reports that her suicidal ideations resolved shortly after she took the deliberate overdose of Tylenol 3 days ago. She adds that the realization of the physical damage she might of done to herself, combined with the pain that she would have inflicted on her family have frightened her and she is eager to find improved coping strategies as well as effective treatment for depression and anxiety. -The patient is being encouraged to participate in individual, group, and activity therapies on the unit in order to explore improved coping strategies and ways of managing anger on chemical substances such as alcohol. -The patient is being monitored on a locked unit and is being checked by staff every 15 minutes for safety. (2) Depression: 02/26 -The patient reports a 3-year history of intermittent depression, worsening in the past 6-9 months in response to various psychosocial stressors. She also reports a related history of anxious distress. -In addition to abstinence from alcohol, we have recommended that she individual, group, and activity therapies in the hospital, and that she continue outpatient psychotherapy following discharge. -Given the fact that the patient has been suffering from depression with anxious distress for 3 years, we have recommended that she began an antidepressant medication. Today, she will be offered a test dose of Lexapro 10 mg, and we will continue this medication on a daily basis and titrate as appropriate 02/27 - maintained lexapro 10mg a day, addresing stresors and sources of support, reviewed family meeting (3) Alcohol abuse: 02/26 -I emphasized with the patient that drinking alcohol at her age is not only illegal, it can significantly contribute to depression and can complicate treatment for depression. The patient is receptive to the recommendation that she stop drinking completely, and she notes that she feels that she can find support for this and her peer group in the community. 02/27 -psychoeducation provided and motivational interviewing aspects, (4) Marijuana use: 02/26 -The patient describes using modest amounts of marijuana (smoking) with friends 3 or 4 times a week. She notes that her experience has been that marijuana helps with her anxious distress, and may on certain occasions to help with sleep. -We have advised her against using illegal chemical substances, including marijuana. Mental Health & Subst Abuse Tx Psychiatrist Name of Psychiatrist: due to weekend discharge not scheduled, [facility] (info faxed), Stockroom Keeper Name of Stockroom Keeper: [facility] Phone Number for Stockroom Keeper: [phone] Case Management Appointment Comment: [facility] Post Discharge Appointments Primary Care Physician Name Of Family Doctor: [facility] Primary Care Time of Appointment with PCP: Follow up as needed Provider Appointment Comment: [facility], [place] [address] Smoking Cessation Counseling Tobacco Cessation Medication Prescribed at Discharge: Not Applicable/Non-Smoker Other #1: Name of Aftercare Appointment: [facility] Phone Number of Aftercare Appointment: [phone] Aftercare Appointment Comment: Call for assistance if unable to schedule aftercare as planned Contact Information Discharge Discharge Plan Discharge Items Patient Disposition: Home - Self-Care Reason For Visit: MAJOR DEPRESSION DISORDER Discharge Diagnosis: Major Depressive Disorder Activity: Resume your previous activity Non-emergency contact: Primary Care Provider, Psychiatrist and Therapist Call non-emergency contact if: you have any medication questions and your symptoms worsen Follow-up/Referrals: [place] [Primary Care Provider] - Diet: Regular Addtl Attending Provider Instructions: SPECIAL CARE INSTRUCTIONS: 1. Follow through with your scheduled aftercare appointments. If unable to keep an appointment, please call to reschedule. 2. Take your medication only as prescribed. Medication should not be changed or stopped without the approval of your doctor. In the event of worsening symptoms or concerns about side effects, contact your doctor immediately. 3. Utilize new healthy coping skills, anger management skills, and stress management skills learned during your hospitalization. Journal feelings and process them with a support person. Identify stressors or situations that may result in relapse, deterioration or inappropriate behaviors and develop a plan to deal with those issues. 4. If your coping skills are ineffective and you are in crisis, contact your outpatient providers for direction. If unable to reach your providers, please call the CAN HELP LINE AT or go to the closest Emergency Room. 5. Avoid alcohol and un-prescribed drugs. 6. You have been provided with the Mental Health Advance Directives Pamphlet for your review. AFTERCARE APPOINTMENTS: * Please call your insurance company prior to your scheduled appointment to confirm your aftercare providers are covered. Take your insurance information to your appointments. WHO TO CALL AND WHEN: Medical Emergencies: For questions or emergencies related to your hospital stay, please contact the Inpatient Behavioral Health Unit at [phone]. A coffee maker servicer is on-call 30/12 for the Behavioral Health Unit for em ergencies At any time you feel your situation is an emergency, you may also call 911 immediately. Your [facility] Instructions noted above were prepared by provider Vaughn Mayen MD. Pending Studies at Discharge: No Stand-Alone Forms: My [facility] Medications and DC Order Prescriptions: New escitalopram oxalate 10 mg Tablet 10 mg PO QAM Qty: 30 RF: 0 Continued .5 (28) 1.5 mg-30 mcg (21)/75 mg (7) tablet 1 tab PO DAILY RF: 0 Discharge Orders: Discharge Order (Routine); Ordered 02/28/19 Ordered By: Vaughn Mayen Admission Data Admit Date/Time: 02/25/19 14:19 Attending Provider: Kika Maharaj Admit Provider: Kika Maharaj Primary Care Provider: [facility] Other Interventions: Discharge Summary Assessment (RN) Last Done: 02/28/19 10:17 PSY Interdisciplinary Discharge Planning Last Done: 02/28/19 10:34 DC Date/Time DO NOT enter until pt leaves facility: 02/28/19 11:06
== END 2019-02-28 11:06 | disposition home or self-care (01) | DRG 881 ==
LOC: 3S 14:19
DX: F10.10 Alcohol abuse, uncomplicated; F32.9 Major depressive disorder, single episode, unspecified; F17.290 Nicotine dependence, other tobacco product, uncomplicated; Z79.3 Long term (current) use of hormonal contraceptives; R45.851 Suicidal ideations; F12.90 Cannabis use, unspecified, uncomplicated